=== PATIENT | male | born 2000 | race African-American/Black ===

== ENCOUNTER 2021-11-04 20:38 | Observation (INO) | payer OTHER ==
[~2021-11-04] VITALS: Ht 182.9 cm; Wt 122.9 kg
[~2021-11-04 20:38] MED LIST: INHALERS; KEFLEX500 M1 PO; ULTRAM50 M1 PO
[2021-11-04 21:22] LABS: IMMATURE GRANULOCYTES 0.3 % (0.0-5.0); MEAN CELL VOLUME 81.1 fL CALC (80.0-100.0); MEAN CORPUSCULAR HGB CONC 34.6 g/dL CAL (32.0-36.0); NEUT# 4.66 thou/uL (1.82-7.42); RED BLOOD COUNT 6.07 mill/uL (4.70-6.10); RED CELL DISTRI WIDTH 13.3 % (11.5-15.5)
[2021-11-04 21:25] LABS: HEMATOCRIT 49.2 % (39.0-50.0)
[2021-11-04 21:39] LABS: ALKALINE PHOSPHATASE 76 u/l (38-126); BUN 14 mg/dL (9-20); BUN/CREATININE RATIO 8 (12-20 (CALC)); CARBON DIOXIDE 26 mmol/l (22-30); CHLORIDE 97 mmol/l (95-108); CPK 1216 u/l (52-200); CREATININE 1.8 mg/dL (0.7-1.3); ETHYL ALCOHOL 0 mg/dl (0-30); GFR 47 ML/MIN (>=60 (CALC)); GFR FOR AFR.AMER. 57 ML/MIN (>=60 (CALC)); LIPASE 94 u/l (23-300); MAGNESIUM 1.9 mg/dL (1.6-2.3); SGOT/AST 41 u/l (17-59); SODIUM 135 mmol/l (137-146)
[2021-11-04 21:41] LABS: ANION GAP 15 (6-22 (CALC)); BILIRUBIN, TOTAL 1.6 mg/dL (0.0-1.4); POTASSIUM 3.4 mmol/l (3.5-5.1); TOTAL PROTEIN 9.2 g/dL (6.3-8.2)
[2021-11-04 22:00] VITALS: BP 116/73
[2021-11-04 22:30] VITALS: BP 116/71
[2021-11-04 22:59] LABS: URINE BILIRUBIN - DIPSTICK NEGATIVE (NEGATIVE); URINE BLOOD DIPSTICK NEGATIVE (NEGATIVE); URINE COLOR YELLOW; URINE GLUCOSE - DIPSTICK NEGATIVE (NEGATIVE); URINE KETONE TRACE mg/dL (NEGATIVE); URINE LEUK ESTERASE NEGATIVE (NEGATIVE); URINE PROTEIN - DIPSTICK NEGATIVE (NEG-TRACE); URINE SPECIFIC GRAVITY >=1.030; URINE UROBILINOGEN - DIPSTICK 0.2 E.U./dL (0.2)
[2021-11-04 23:00] VITALS: BP 117/77
[2021-11-04 23:04] LABS: URINE NITRITE - DIPSTICK NEGATIVE (Negative)
[2021-11-05] VITALS (7 sets, daily range): BP systolic 105–134; BP diastolic 54–77
[2021-11-05 00:02] LABS: CPK 1130 u/l (52-200)
[2021-11-05 00:04] LABS: ALBUMIN 4.3 g/dL (3.2-5.0); ALKALINE PHOSPHATASE 71 u/l (38-126); ANION GAP 16 (6-22 (CALC)); BILIRUBIN, TOTAL 1.2 mg/dL (0.0-1.4); BUN 13 mg/dL (9-20); BUN/CREATININE RATIO 9 (12-20 (CALC)); CARBON DIOXIDE 25 mmol/l (22-30); CHLORIDE 101 mmol/l (95-108); CREATININE 1.6 mg/dL (0.7-1.3); GFR 54 ML/MIN (>=60 (CALC)); GFR FOR AFR.AMER. > 60 ML/MIN (>=60 (CALC)); SGOT/AST 36 u/l (17-59); SODIUM 137 mmol/l (137-146); TOTAL PROTEIN 7.4 g/dL (6.3-8.2)
[2021-11-05 05:50] LABS: IMMATURE GRANULOCYTES 0.1 % (0.0-5.0); MEAN CELL VOLUME 82.5 fL CALC (80.0-100.0); MEAN CORPUSCULAR HGB 28.5 pG CALC (26.0-32.0); MEAN CORPUSCULAR HGB CONC 34.6 g/dL CAL (32.0-36.0); NEUT# 3.93 thou/uL (1.82-7.42); RED BLOOD COUNT 5.19 mill/uL (4.70-6.10); RED CELL DISTRI WIDTH 13.5 % (11.5-15.5)
[2021-11-05 05:53] LABS: HEMATOCRIT 42.8 % (39.0-50.0); HEMOGLOBIN 14.8 g/dl (14.0-18.0)
[2021-11-05 06:09] LABS: ALBUMIN 3.5 g/dL (3.2-5.0); ALKALINE PHOSPHATASE 61 u/l (38-126); ANION GAP 13 (6-22 (CALC)); BUN 10 mg/dL (9-20); BUN/CREATININE RATIO 8 (12-20 (CALC)); CARBON DIOXIDE 23 mmol/l (22-30); CHLORIDE 104 mmol/l (95-108); CREATININE 1.2 mg/dL (0.7-1.3); GFR > 60 ML/MIN (>=60 (CALC)); GFR FOR AFR.AMER. > 60 ML/MIN (>=60 (CALC)); POTASSIUM 3.9 mmol/l (3.5-5.1); SGOT/AST 37 u/l (17-59); SODIUM 136 mmol/l (137-146); TOTAL PROTEIN 6.4 g/dL (6.3-8.2)
[2021-11-05 11:58] LABS: CPK 1333 u/l (52-200)
[2021-11-05 12:08] LABS: MYOGLOBIN 191 ng/mL (0 - 121)
== END 2021-11-05 16:15 | disposition home or self-care (01) | DRG 558 ==
LOC: ED 20:38 → ED-I 11-05 00:15 → ED 11-05 00:43 → MS2 11-05 00:44
PROVIDERS: ADMIT Internal Medicine; ATTEND Internal Medicine
DX: M62.82 Rhabdomyolysis (principal); N17.9 Acute kidney failure, unspecified; E87.2 Acidosis
CPT/HCPCS: G0378